=== PATIENT | male | born 1975 | race Hispanic/Latino ===

== ENCOUNTER 2018-02-10 13:26 | Observation (INO) | payer SELFPAY ==
[2018-02-10 20:58] VITALS: BMI 27.8
[2018-02-10] MEDS ORDERED: Ondansetron ODT 4 MG TAB SL PRN (21:20)
[2018-02-10] MEDS ORDERED: Sodium Chloride 0.9% 1,000 ML IV SCH (21:20)
[2018-02-10] MEDS ORDERED: Acetaminophen 325 MG TAB PO PRN (21:20)
[2018-02-10] MEDS ORDERED: Ondansetron PF 4 MG/2 ML Vial IVP PRN (21:20)
[2018-02-11 04:28] VITALS: BP 133/93; TEMP 98.2
--- NOTE | 2018-02-11 06:01 | HP ---
CHIEF COMPLAINT: The patient is transferred here for medical clearance. HISTORY OF PRESENT ILLNESS: This is a 42-year-old male with past medical history of coronary artery disease, cardiomyopathy, hyperlipidemia, hypertension, dementia, presenting here for medical clearanc e. The history was obtained from police. Per the police report, patient was in the process of being booked when patient showed signs of ingesting meth even though nobody saw the patient ingested meth because the patient was refusing to open his mouth, so that they can inspect his mouth. They suspect ed that patient had ingested some meth or swallowed meth. Prior to the patient being arrested, it wa s stated that the patient was doing meth. Upon speaking to the patient at this time, the patient sta héctor that he is doing fine. He just going to get up and go to take a shower. The patient does not cas[place] ve any complaints at this time. REVIEW OF SYSTEMS: All systems were reviewed and are negative. PAST MEDICAL HISTORY: BPH, CHF, cardiomyopathy, coronary artery disease, hyperlipidemia, hypertensio n, dementia. FAMILY HISTORY: Reviewed and noncontributory to this visit. PAST SURGICAL HISTORY: Back surgery. PSYCHIATRIC HISTORY: No psych history. SOCIAL HISTORY: The patient is a drug abuser. Unknown if patient drinks alcohol. The patient state s that he does not know. ALLERGIES: DONEPEZIL. CURRENT MEDICATIONS: The patient takes aspirin, atorvastatin, carvedilol, melatonin, risperidone, En tresto, tamsulosin, furosemide, and spironolactone as well. PHYSICAL EXAMINATION: VITAL SIGNS: Blood pressure is 182/108, pulse is 124, respiratory rate of 16, temperature of 98.1, o xygen saturation is 100 on room air. GENERAL: The patient is alert, oriented x3, not in acute distress. The patient is getting ready to go to take a shower. HEENT: Normocephalic, atraumatic. Pupils are equal, round, and reactive to light. Extraocular move ments are intact. No scleral icterus. No conjunctival pallor. Trachea is midline. Full range of m otion. NECK: Supple. LUNGS: Clear to auscultation bilaterally. No wheezing, no rales, no rhonchi is appreciated. CARDIAC: Positive S1, S2. The patient is tachycardic. ABDOMEN: Soft, nontender, nondistended. Positive bowel sounds in all quadrants. No pulsatile tereza s. EXTREMITIES: 5/5 upper extremity strength at the upper and lower extremities. No edema. Good pulse s bilaterally. NEUROLOGIC: Cranial nerves II through XII grossly intact. No neurologic deficits noted. SKIN: Warm, dry, and intact. PSYCHIATRIC: The patient has normal affect. Imaging of the abdomen shows no radiopaque foreign body . LABORATORY DATA: WBC is 14.1, hemoglobin 15.9, hematocrit 46.8, platelet count is 333. Sodium is 13 8, potassium is 3.6, chloride is 108, carbon dioxide of 21, anion gap of 13, BUN is 11, creatinine is 1.18, GFR of 82, glucose 142, AST 17, ALT 21, alkaline phosphatase is 55. Urinalysis shows small le ukoesterase. Urine tox shows positive amphetamines, positive methamphetamines. ASSESSMENT AND PLAN: This is a 42-year-old male being brought to the hospital for medical clearance when the patient was being booked by the police. At this point, the patient is being admitted for, 1. methamphetamine use. The patient is currently being booked for using illicit drugs. The patient 's urine tox has shown positive amphetamines and methamphetamines. At this point, we will continue s upportive care. The patient is currently alert and oriented x3, not in acute distress. The patient is doing well. 2. Asymptomatic urinary tract infection. We are going to monitor. 3. History of hypertension. We will monitor patient's blood pressure closely and we will give blood pressure medication accordingly. 4. Leukocytosis, likely reactive. We will monitor patient's CBCs in the a.m. 5. Hyperlipidemia. Continue the patient on his home medication. 6. History of congestive heart failure. We will continue patient on his home medications. 7. Deep venous thrombosis and gastrointestinal prophylaxis.
--- NOTE | 2018-02-11 10:00 | SS ---
CHIEF COMPLAINT: Medical clearance drug abuse. HISTORY OF PRESENT ILLNESS/HOSPITAL COURSE: The patient is a 42-year-old male with past medical history of coronary artery disease, cardiomyopathy, hyperlipidemia, hypertension, dementia, presenting here for medical clearance. History was obtained from police. Per the police report the patient was in the process of being booked when he showed signs of ingesting methamphetamines, even though nobody saw the patient ingest the drug. The patient at that time had refused to open his mouth, so they could not inspect it. The patient does admit to doing methamphetamines prior to arrest. When admitted to the hospital , the patient denied any complaints. He was sent up to the observation unit where he left at some point during the night without telling staff, it is believed his IV catheter was still in place. Staff looked for the patient around the hospital and called [place] police and filed a report. The patient was gone prior to the start of the shift and was not seen by this clinician. Vital signs at 3:00 a.m. were temperature 98.2, pulse 110, blood pressure 133/93 , respirations 20, O2 sat 98% on room air. The patient did receive normal saline IV, 1 liter. The patient was not on any medications. Denies any drug allergies. CONDITION AT DISCHARGE: Unknown. The patient left against medical advice. ABY
== END 2018-02-11 06:38 | disposition left against medical advice (07) ==
LOC: ERS 13:26 → INTOOBSV 20:26 → 2SW 20:26
PROVIDERS: ADMIT Internal Medicine; ATTEND Internal Medicine
DX: F15.10 Other stimulant abuse, uncomplicated (principal); I25.10 Atherosclerotic heart disease of native coronary artery without angina pectoris; I42.9 Cardiomyopathy, unspecified; E78.5 Hyperlipidemia, unspecified; F03.90 Unspecified dementia, unspecified severity, without behavioral disturbance, psychotic disturbance, mood disturbance, and anxiety; I11.0 Hypertensive heart disease with heart failure; I50.9 Heart failure, unspecified; N39.0 Urinary tract infection, site not specified; Z53.21 Procedure and treatment not carried out due to patient leaving prior to being seen by health care provider; Z79.82 Long term (current) use of aspirin; Z79.899 Other long term (current) drug therapy
CPT/HCPCS: 96360; 96361; G0378